=== PATIENT | male | born 2000 | race Caucasian/White ===

== ENCOUNTER 2022-02-15 13:49 | Outpatient (CLI) | payer OTHER, SELFPAY ==
[2022-02-15 14:30] LABS: Basophils Absolute Auto 0.05 K/uL (0.00-0.30); Basophils Percent Auto 0.6 % (0.0-3.0); Eosinophils Absolute Auto 0.42 K/uL (0.00-0.50); Eosinophils Percent Auto 5.4 % (0.0-7.0); Hematocrit 33.4 % (37.0-53.0); Hemoglobin* 9.7 gm/dL (13.5-17.5); Immature Granulocytes Abs Auto 0.01 K/uL (0.00-0.30); Lymphocytes Percent Auto 25.8 % (20-44); Mean Corpuscular HGB Conc 29 gm/dL (32-36); Mean Corpuscular Hemoglobin 22 pg (26-34); Mean Corpuscular Volume 76 fL (80-100); Monocytes Percent Auto 8.8 % (0.0-11.0); Neutrophils Absolute Auto 4.58 K/uL (1.7-7.0); Neutrophils Percent Auto 59.3 % (42.0-72.0); Platelet Count* 524 K/uL (140-440); RDW Coefficient of Variation % 15.2 % (11.5-15.5); Red Blood Count 4.38 m/uL (4.30-5.90); White Blood Count* 7.74 K/uL (4.50-11.00)
[2022-02-15 15:01] LABS: Iron* 14 ug/dL (49-181)
[2022-02-15 15:07] LABS: Slide Review Reflex Yes
[2022-02-15 15:11] LABS: Percent Iron Saturation 4 % (20-50); Slide Review Acceptable Review (Acceptable); Total Iron Binding Capacity 355 ug/dL (261-462)
[2022-02-15 15:22] LABS: Ferritin* 6.3 ng/mL (17.9-464.0)
== END 2022-02-15 13:50 | disposition home or self-care (01) ==
DX: D50.0 Iron deficiency anemia secondary to blood loss (chronic) (principal)
CPT/HCPCS: 36415; 82728; 83540; 83550; 85025